=== PATIENT | male | born 1970 | race Caucasian/White ===

== ENCOUNTER 2025-06-25 18:44 | Emergency (ER) | payer SELFPAY ==
[2025-06-25] MEDS ORDERED: Sodium Chloride 0.9% 10 ML Syringe FLUSH PRN (19:33)
[2025-06-25 19:43] LABS: BASOPHILS ABSOLUTE AUTO 0.0 x10-3/uL (0.0-0.3); BASOPHILS PERCENT AUTO 0.7 % (0.3-3.8); EOSINOPHILS ABSOLUTE AUTO 0.2 x10-3/uL (0.0-0.6); EOSINOPHILS PERCENT AUTO 3.6 % (0.1-6.8); LYMPHOCYTES ABSOLUTE AUTO 2.6 x10-3/uL (0.5-4.5); LYMPHOCYTES PERCENT AUTO 41.3 % (15.8-45.3); MEAN PLATELET VOLUME 9.0 fL (6.7-11.0); MONOCYTES ABSOLUTE AUTO 0.4 x10-3/uL (0.0-1.2); MONOCYTES PERCENT AUTO 6.7 % (5.5-15.2); NEUTROPHILS ABSOLUTE AUTO 3.0 x10-3/uL (1.7-6.9); NEUTROPHILS PERCENT AUTO 47.7 % (40.3-71.8); PLATELET COUNT,PLT 98 x10(3)uL (117-477); RED CELL DISTRIBUTION WIDTH 16.3 % (12.4-15.0); WHITE BLOOD CELL COUNT,WBC 6.3 x10-3/uL (3.2-10.1)
[2025-06-25 19:47] LABS: RED BLOOD CELL COUNT 4.10 x10(6)uL (3.90-5.90)
[2025-06-25 19:48] LABS: BLOOD UREA NITROGEN,BUN 8 mg/dL (7-18); CARBON DIOXIDE,CO2 26 mmol/L (21-32); CHLORIDE,CL 103 mmol/L (100-110); CREATININE 0.7 mg/dL (0.70-1.30); EST CRCL DRUG DOSING (CG) 133.95 mL/min; ESTIMATED GFR 110 mL/min (>60); GLUCOSE RANDOM 101 mg/dL (80-116); POTASSIUM,K 3.5 mmol/L (3.5-5.3); SODIUM,NA 141 mmol/L (135-145)
[2025-06-25 19:53] LABS: ETHANOL BLOOD MEDICAL 0.22 % (<0.03)
[2025-06-25 19:54] LABS: A/G RATIO 0.8; ALANINE AMINOTRANSFERASE,ALT 33 U/L (12-36); ASPARTATE AMNIOTRANSFERASE,AST 79 IU/L (5-25); BILIRUBIN TOTAL 0.5 mg/dL (0.1-1.3); PROTEIN TOTAL,TP 8.1 g/dL (6.0-8.0)
[2025-06-25 19:57] LABS: PTT,PARTIAL THROMBOPLSTIN TIME 30.8 SECONDS (24.4-33.2)
[2025-06-25 19:59] LABS: INR 0.99 (1.00-1.24)
== END 2025-06-25 22:15 | disposition home or self-care (01) ==
LOC: FB.ED 18:44
DX: S31.115A Laceration without foreign body of abdominal wall, periumbilic region without penetration into peritoneal cavity, initial encounter (principal); Z87.19 Personal history of other diseases of the digestive system; X58.XXXA Exposure to other specified factors, initial encounter
CPT/HCPCS: 36415; 80053; 80307; 83690; 85025; 85610; 85730; 96360; 99283; 99284-25; J7030

== ENCOUNTER 2025-09-22 11:33 | Emergency (ER) | payer OTHER ==
[2025-09-22] MEDS: Ketorolac 30 MG/ML SDV IM ONE (11:50)
== END 2025-09-22 13:40 | disposition home or self-care (01) ==
LOC: FB.ED 11:33
DX: S22.41XA Multiple fractures of ribs, right side, initial encounter for closed fracture (principal); S27.321A Contusion of lung, unilateral, initial encounter; S27.0XXA Traumatic pneumothorax, initial encounter; K76.6 Portal hypertension; F17.200 Nicotine dependence, unspecified, uncomplicated; W18.2XXA Fall in (into) shower or empty bathtub, initial encounter
CPT/HCPCS: 71250; 96372; 99283; J1885